=== PATIENT | female | born 1960 | race Two or more races ===

== ENCOUNTER 2018-06-11 09:27 | Inpatient (IN) | payer MEDICAID ==
[~2018-06-11] VITALS: Ht 162.6 cm; Wt 98.9 kg
[2018-06-11] VITALS (12 sets, daily range): BP systolic 110–123; BP diastolic 53–70
[2018-06-11] MEDS ORDERED: SODIUM CHLORIDE 0.9% 1,000 ML IV ONE ×2 (10:15)
[2018-06-11] MEDS ORDERED: CLINDAMYCIN 900MG IV 50 ML IV ONE (10:15)
[2018-06-11] MEDS ORDERED: PIPERACILLIN-TAZOB 3.375GM 100 ML IV ONE (10:15)
[2018-06-11 10:52] LABS: Alanine Aminotransferase 36 U/L (13-56); Albumin 2.7 g/dL (3.4-5.0); Anion Gap 9 (5-15); Aspartate Aminotransferase 35 U/L (15-37); BUN/Creatinine Ratio 12.8; Blood Urea Nitrogen 6 mg/dL (7-18); Calcium 7.6 mg/dL (8.5-10.1); Carbon Dioxide 22 mmol/L (21-32); Chloride 110 mmol/L (98-107); GFR African American 177 mL/min; GFR Non-African American 146 mL/min; Glucose 92 mg/dL (74-106); Potassium 3.7 mmol/L (3.5-5.1); Sodium 141 mmol/L (136-145)
[2018-06-11 10:57] LABS: Alkaline Phosphatase 113 U/L (45-117); Bilirubin, Total 1.5 mg/dL (0.2-1.0); Total Protein 6.4 g/dL (6.4-8.2)
[2018-06-11] MEDS ORDERED: FUROSEMIDE 20 MG/2 ML VIAL IV ONE (11:00)
[2018-06-11 11:42] LABS: Basophils # (auto) 0 uL; Eosinophils # (auto) 0.1 uL; Lymphocytes # (auto) 0.3 uL; Monocytes # (auto) 0.1 uL
[2018-06-11 11:44] LABS: Basophils % (auto) 1.2 % (0.0-2.0); Eosinophils % (auto) 6.4 % (0.0-7.0); Lymphocytes % (auto) 20.5 % (10.0-50.0); Mean Corpuscular Hemoglobin 19.1 pg (28.0-32.0); Mean Corpuscular Hgb Conc. 28.4 g/dL (32.0-36.0); Mean Corpuscular Volume 67.3 fL (80.0-100.0); Monocytes % (auto) 10.2 % (0.0-12.0); Neutrophils # (auto) 0.8 uL; Neutrophils % (auto) 61.7 % (37.0-80.0); Nucleated Red Blood Cells % 1.7 %; Red Blood Cells 2.22 10^6/uL (4.0-5.20)
[2018-06-11 11:48] LABS: Urine WBC None Seen /hpf (0 - 5)
[2018-06-11 11:50] LABS: Red Cell Distribution Width 20.7 % (11.8-14.3)
[2018-06-11 11:52] LABS: Platelet Count (auto) 20 10^3/uL (140-450)
[2018-06-11 11:53] LABS: Hemoglobin 4.3 g/dL (12.2-16.2); White Blood Cell 1.3 10^3/uL (4.4-10.8)
[2018-06-11 12:07] LABS: Mean Corpuscular Hemoglobin 18.8 pg (28.0-32.0)
[2018-06-11 12:11] LABS: Hematocrit 14.5 % (36.0-46.0); Mean Corpuscular Hgb Conc. 28.3 g/dL (32.0-36.0); Mean Corpuscular Volume 66.5 fL (80.0-100.0); Red Blood Cells 2.18 10^6/uL (4.0-5.20)
[2018-06-11 12:14] LABS: INR 1.35 (0.9-1.15); Prothrombin Time 14.2 sec (9.27-12.13)
[2018-06-11 12:20] LABS: Red Cell Distribution Width 20.4 % (11.8-14.3)
[2018-06-11 12:23] LABS: Hemoglobin 4.1 g/dL (12.2-16.2); Platelet Count (auto) 18 10^3/uL (140-450); White Blood Cell 1.3 10^3/uL (4.4-10.8)
[2018-06-11 12:24] LABS: Band Neutrophils % (manual) 0; Basophils % (manual) 0 (0.0-2.0); Blast Cells 0; Metamyelocytes % 0; Myelocytes % 0; Promyelocytes % 0; Reactive Lymphocytes 0
[2018-06-11 12:26] LABS: Urine Bacteria NONE SEEN /hpf (None Seen); Urine Blood Negative /uL (Negative); Urine Specific Gravity 1.005 (1.001-1.035)
[2018-06-11] MEDS ORDERED: DOCUSATE SOD 100 MG CAP PO PRN (13:15)
[2018-06-11] MEDS ORDERED: NITROGLYCERIN 0.4 MG SL TAB SL PRN (13:15)
[2018-06-11] MEDS ORDERED: ACETAMINOPHEN 325 MG TAB PO PRN (13:15)
[2018-06-11] MEDS ORDERED: MORPHINE SULFATE 4 MG/ML SYR/VIAL IV PRN ×2 (13:15)
[2018-06-11] MEDS ORDERED: VANCOMYCIN PER PHARMACY 0 MG IV SCH (13:15)
[2018-06-11] MEDS ORDERED: SPIRONOLACTONE 25 MG TAB PO ONE ×2 (13:15→15:45)
[2018-06-11] MEDS ORDERED: ONDANSETRON HCL 4 MG/2 ML VIAL IV PRN (13:15)
[2018-06-11] MEDS ORDERED: HYDROcodone-ACET 5/325MG TAB PO PRN (13:15)
[2018-06-11 13:34] LABS: Eosinophils % (manual) 3 (0-7); Lymphocytes % (manual) 17 (10.0-50.0); Monocytes % (manual) 5 (0-12)
[2018-06-11] MEDS: SODIUM CHLOR 0.9% PF (SALINE LOCK) 10ML VIAL/SYR IV SCH ×2 (13:56→21:09)
[2018-06-11] MEDS: PIPERACILLIN-TAZOB 3.375GM 100 ML IV SCH ×2 (14:00→20:12)
[2018-06-11] MEDS ORDERED: SPIRONOLACTONE 25 MG TAB PO SCH (18:00)
[2018-06-11] MEDS ORDERED: FUROSEMIDE 20 MG/2 ML VIAL IV SCH (18:00)
[2018-06-11] MEDS: VANCOMYCIN 1GM/250ML 250 ML IV SCH (18:40)
[2018-06-11] MEDS: Ensure Enlive Strawberry 8oz Bottle PO SCH ×2 (18:42→21:09)
[2018-06-11 20:22] LABS: Basophils # (auto) 0 uL; Eosinophils # (auto) 0.1 uL; Lymphocytes # (auto) 0.3 uL; Monocytes # (auto) 0.2 uL; Monocytes % (auto) 8.8 % (0.0-12.0)
[2018-06-11 20:24] LABS: Basophils % (auto) 0.8 % (0.0-2.0); Eosinophils % (auto) 3.4 % (0.0-7.0); Hematocrit 19.6 % (36.0-46.0); Lymphocytes % (auto) 12.9 % (10.0-50.0); Mean Corpuscular Hgb Conc. 29.8 g/dL (32.0-36.0); Mean Corpuscular Volume 70.5 fL (80.0-100.0); Neutrophils # (auto) 1.7 uL; Neutrophils % (auto) 74.1 % (37.0-80.0); Nucleated Red Blood Cells % 0.3 %; Red Blood Cells 2.78 10^6/uL (4.0-5.20); White Blood Cell 2.3 10^3/uL (4.4-10.8)
[2018-06-11 20:35] LABS: Hemoglobin 5.8 g/dL (12.2-16.2); Red Cell Distribution Width 22.5 % (11.8-14.3)
[2018-06-11 20:36] LABS: Platelet Count (auto) 19 10^3/uL (140-450)
[2018-06-11] MEDS: FAMOTIDINE 20 MG TAB PO SCH (21:12)
[2018-06-12] VITALS (11 sets, daily range): BP systolic 117–137; BP diastolic 50–95
[2018-06-12 00:11] LABS: Basophils # (auto) 0 uL; Eosinophils # (auto) 0.1 uL; Monocytes # (auto) 0.3 uL; Nucleated Red Blood Cells % 0.1 %; Red Blood Cells 3.04 10^6/uL (4.0-5.20)
[2018-06-12 00:13] LABS: Eosinophils % (auto) 5.4 % (0.0-7.0); Hematocrit 21.9 % (36.0-46.0); Lymphocytes # (auto) 0.4 uL; Lymphocytes % (auto) 14.2 % (10.0-50.0); Mean Corpuscular Hemoglobin 22.2 pg (28.0-32.0); Mean Corpuscular Hgb Conc. 30.8 g/dL (32.0-36.0); Mean Corpuscular Volume 72.1 fL (80.0-100.0); Monocytes % (auto) 11.4 % (0.0-12.0); Neutrophils # (auto) 1.7 uL; Platelet Count (auto) 25 10^3/uL (140-450); White Blood Cell 2.5 10^3/uL (4.4-10.8)
[2018-06-12 00:16] LABS: Red Cell Distribution Width 23.6 % (11.8-14.3)
[2018-06-12 00:18] LABS: Hemoglobin 6.7 g/dL (12.2-16.2)
[2018-06-12] MEDS: PIPERACILLIN-TAZOB 3.375GM 100 ML IV SCH ×2 (02:15→08:00)
[2018-06-12] MEDS: VANCOMYCIN 1GM/250ML 250 ML IV SCH (03:55)
[2018-06-12] MEDS: Ensure Enlive Strawberry 8oz Bottle PO SCH ×4 (06:00→22:51)
[2018-06-12] MEDS: SODIUM CHLOR 0.9% PF (SALINE LOCK) 10ML VIAL/SYR IV SCH ×3 (06:20→22:50)
[2018-06-12 06:43] LABS: Basophils # (auto) 0 uL; Eosinophils # (auto) 0.2 uL; Lymphocytes # (auto) 0.4 uL; Mean Corpuscular Hgb Conc. 31.9 g/dL (32.0-36.0); Monocytes # (auto) 0.3 uL; Neutrophils # (auto) 1.8 uL; White Blood Cell 2.7 10^3/uL (4.4-10.8)
[2018-06-12 06:46] LABS: Basophils % (auto) 1.1 % (0.0-2.0); Eosinophils % (auto) 7.4 % (0.0-7.0); Hematocrit 25.1 % (36.0-46.0); Mean Corpuscular Hemoglobin 23.4 pg (28.0-32.0); Mean Corpuscular Volume 73.4 fL (80.0-100.0); Monocytes % (auto) 10.4 % (0.0-12.0); Neutrophils % (auto) 66.1 % (37.0-80.0); Nucleated Red Blood Cells % 0.4 %; Red Blood Cells 3.43 10^6/uL (4.0-5.20)
[2018-06-12 07:07] LABS: Albumin 2.9 g/dL (3.4-5.0); BUN/Creatinine Ratio 12.5; Calcium 7.7 mg/dL (8.5-10.1); Potassium 3.5 mmol/L (3.5-5.1); Total Protein 6.8 g/dL (6.4-8.2)
[2018-06-12 07:08] LABS: % Iron Saturation 64.4 % (15-50); Red Cell Distribution Width 23.8 % (11.8-14.3)
[2018-06-12 07:12] LABS: Platelet Count (auto) 14 10^3/uL (140-450)
[2018-06-12] MEDS: MULTIPLE VITAMIN TAB PO SCH (10:00)
[2018-06-12] MEDS: FAMOTIDINE 20 MG TAB PO SCH (11:38)
[2018-06-12] MEDS: FUROSEMIDE 40 MG TAB PO SCH (11:38)
[2018-06-12] MEDS: SPIRONOLACTONE 25 MG TAB PO SCH (14:41)
[2018-06-12] MEDS ORDERED: FUR20T PO (15:24)
[2018-06-12 16:38] LABS: Alcohol, Urine < 3.0 mg/dL (0-5); Amphetamine Screen, Urine NEGATIVE (NEGATIVE); Barbiturate Scree,Urine NEGATIVE (NEGATIVE); Benzodiazephine Screen, Urine NEGATIVE (NEGATIVE); Cannabinoid Screen, Urine NEGATIVE (NEGATIVE); Cocaine Screen, Urine NEGATIVE (NEGATIVE); Opiate Scree,Urine NEGATIVE (NEGATIVE); Phencyclidine Screen, Urine NEGATIVE (NEGATIVE)
[2018-06-12] MEDS: PROPRANOLOL HCL 20 MG TAB PO SCH (22:51)
[2018-06-12] MEDS: PANTOPRAZOLE 40 MG TAB PO SCH (22:51)
[2018-06-12] MEDS: TEMAZEPAM 15 MG CAP PO PRN (22:52)
[2018-06-13] VITALS (9 sets, daily range): BP systolic 98–122; BP diastolic 50–60
[2018-06-13] MEDS: SODIUM CHLOR 0.9% PF (SALINE LOCK) 10ML VIAL/SYR IV SCH ×3 (06:00→22:04)
[2018-06-13] MEDS: Ensure Enlive Strawberry 8oz Bottle PO SCH ×4 (06:00→22:00)
[2018-06-13] MEDS: PANTOPRAZOLE 40 MG TAB PO SCH ×2 (08:40→22:05)
[2018-06-13] MEDS: MULTIPLE VITAMIN TAB PO SCH (08:40)
[2018-06-13] MEDS: cefTRIAXone 1GM/10ml IVPUSH 10 ML IV SCH (08:40)
[2018-06-13] MEDS: FUROSEMIDE 40 MG TAB PO SCH (08:41)
[2018-06-13] MEDS: SPIRONOLACTONE 25 MG TAB PO SCH (08:42)
[2018-06-13] MEDS: PROPRANOLOL HCL 20 MG TAB PO SCH ×2 (10:00→22:04)
[2018-06-13 10:32] LABS: Basophils # (auto) 0 uL; Lymphocytes # (auto) 0.4 uL; Nucleated Red Blood Cells % 0.4 %
[2018-06-13 10:34] LABS: Basophils % (auto) 1.1 % (0.0-2.0); Eosinophils # (auto) 0.2 uL; Eosinophils % (auto) 8.4 % (0.0-7.0); Hematocrit 25.5 % (36.0-46.0); Hemoglobin 7.9 g/dL (12.2-16.2); Mean Corpuscular Hemoglobin 22.8 pg (28.0-32.0); Mean Corpuscular Hgb Conc. 30.7 g/dL (32.0-36.0); Monocytes # (auto) 0.3 uL; Monocytes % (auto) 11.5 % (0.0-12.0); Neutrophils # (auto) 1.8 uL; Red Blood Cells 3.45 10^6/uL (4.0-5.20); White Blood Cell 2.7 10^3/uL (4.4-10.8)
[2018-06-13 10:35] LABS: Red Cell Distribution Width 24.4 % (11.8-14.3)
[2018-06-13 10:36] LABS: Platelet Count (auto) 26 10^3/uL (140-450)
[2018-06-13 10:51] LABS: Hepatitis A Ab IgM Negative; Hepatitis B Core IgM Negative; Hepatitis B Surface Antigen Negative (Negative); Hepatitis C Antibody Negative (Negative)
[2018-06-13] MEDS: TEMAZEPAM 15 MG CAP PO PRN (22:05)
[2018-06-14 04:55] VITALS: BP 113/76
[2018-06-14] MEDS: SODIUM CHLOR 0.9% PF (SALINE LOCK) 10ML VIAL/SYR IV SCH (05:56)
[2018-06-14 07:12] LABS: Basophils # (auto) 0 uL; Eosinophils # (auto) 0.1 uL; Eosinophils % (auto) 3.7 % (0.0-7.0); Hemoglobin 7.6 g/dL (12.2-16.2); Lymphocytes # (auto) 0.5 uL; Mean Corpuscular Hemoglobin 23.4 pg (28.0-32.0)
[2018-06-14 07:14] LABS: Basophils % (auto) 0.8 % (0.0-2.0); Hematocrit 24.3 % (36.0-46.0); Lymphocytes % (auto) 16.8 % (10.0-50.0); Mean Corpuscular Hgb Conc. 31.3 g/dL (32.0-36.0); Mean Corpuscular Volume 74.8 fL (80.0-100.0); Monocytes # (auto) 0.4 uL; Monocytes % (auto) 11.9 % (0.0-12.0); Neutrophils % (auto) 66.8 % (37.0-80.0); Nucleated Red Blood Cells % 0.5 %; Platelet Count (auto) 26 10^3/uL (140-450); Red Blood Cells 3.25 10^6/uL (4.0-5.20)
[2018-06-14 07:25] VITALS: BP 114/52
[2018-06-14 07:29] LABS: Red Cell Distribution Width 24.8 % (11.8-14.3)
[2018-06-14 07:35] LABS: Albumin 2.6 g/dL (3.4-5.0); BUN/Creatinine Ratio 18.8; Bilirubin, Total 1.7 mg/dL (0.2-1.0); Calcium 7.7 mg/dL (8.5-10.1); Potassium 3.7 mmol/L (3.5-5.1); Total Protein 6.3 g/dL (6.4-8.2)
[2018-06-14 07:40] LABS: % Iron Saturation 4.4 % (15-50)
[2018-06-14] MEDS: Ensure Enlive Strawberry 8oz Bottle PO SCH (08:49)
[2018-06-14] MEDS: cefTRIAXone 1GM/10ml IVPUSH 10 ML IV SCH (09:21)
[2018-06-14] MEDS: MULTIPLE VITAMIN TAB PO SCH (09:23)
[2018-06-14] MEDS: PANTOPRAZOLE 40 MG TAB PO SCH (09:23)
[2018-06-14] MEDS: FUROSEMIDE 40 MG TAB PO SCH (09:23)
[2018-06-14] MEDS: SPIRONOLACTONE 25 MG TAB PO SCH (09:24)
[2018-06-14] MEDS: PROPRANOLOL HCL 20 MG TAB PO SCH (10:00)
[2018-06-14] MEDS ORDERED: SPIR25TA88 PO (12:27)
[2018-06-14] MEDS ORDERED: FURO40TA4 PO (12:27)
[2018-06-14] MEDS ORDERED: PRO20T PO (12:27)
[2018-06-14] MEDS ORDERED: PANT40T PO (12:27)
[2018-06-14] MEDS ORDERED: HYDROcodone-ACET 5/325MG TAB PO PRN (12:30)
[2018-06-14] MEDS ORDERED: MORPHINE SULFATE 4 MG/ML SYR/VIAL IV PRN (12:30)
[2018-06-14 13:24] VITALS: BP 106/49
[2018-06-14 14:50] VITALS: BP 106/52
[2018-06-14 16:37] VITALS: BP 115/54
== END 2018-06-14 17:00 | disposition home or self-care (01) ==
LOC: ER 09:27 → TELE 09:28 → DOU IN ICU 06-12 10:00 → TELE-CENTR 06-12 18:10 → CENTRAL 06-13 23:57
PROVIDERS: ADMIT Internal Medicine; ATTEND Internal Medicine
PROC: 30233N1 Transfusion of Nonautologous Red Blood Cells into Peripheral Vein, Percutaneous Approach (ICD-10-PCS; 2018-06-11)
PROC: 30233R1 Transfusion of Nonautologous Platelets into Peripheral Vein, Percutaneous Approach (ICD-10-PCS; principal; 2018-06-12)
DX: K74.69 Other cirrhosis of liver (principal); E43 Unspecified severe protein-calorie malnutrition; D61.818 Other pancytopenia; D68.4 Acquired coagulation factor deficiency; R18.8 Other ascites; E83.51 Hypocalcemia; K76.6 Portal hypertension; R16.1 Splenomegaly, not elsewhere classified; K57.30 Diverticulosis of large intestine without perforation or abscess without bleeding; M46.90 Unspecified inflammatory spondylopathy, site unspecified; I50.9 Heart failure, unspecified; K31.89 Other diseases of stomach and duodenum; K44.9 Diaphragmatic hernia without obstruction or gangrene; Z83.3 Family history of diabetes mellitus; Z68.37 Body mass index [BMI] 37.0-37.9, adult
CPT/HCPCS: 36415; 71045; 74176; 76700; 80053; 80074; 80202; 80307; 81001; 82248; 82390; 83540; 83550; 83880; 84484; 85007; 85025; 85027; 85610; 85652; 86038; 86141; 86850; 86900; 86901; 86920; 87040; 87081; 93005; 93306; 96374; J0696; J2543

== ENCOUNTER 2018-07-12 08:56 | Emergency (ER) | payer MEDICAID, OTHER ==
[~2018-07-12] VITALS: Ht 162.6 cm; Wt 79.8 kg
[~2018-07-12 08:56] MED LIST: FURO40TA4 PO; PANT40T PO; PRO20T PO; SPIR25TA88 PO
[2018-07-12 09:40] LABS: Urine Bacteria FEW /hpf (None Seen); Urine Blood Negative /uL (Negative); Urine Specific Gravity 1.021 (1.001-1.035); Urine WBC 6 /hpf (0 - 5)
[2018-07-12 09:57] LABS: Basophils # (auto) 0 uL; Basophils % (auto) 0.9 % (0.0-2.0); Eosinophils # (auto) 0.1 uL; Lymphocytes # (auto) 0.5 uL; Monocytes # (auto) 0.3 uL; Neutrophils # (auto) 1.8 uL; White Blood Cell 2.8 10^3/uL (4.4-10.8)
[2018-07-12 09:59] LABS: Hematocrit 31.9 % (36.0-46.0); Lymphocytes % (auto) 18.2 % (10.0-50.0); Mean Corpuscular Hemoglobin 24.6 pg (28.0-32.0); Mean Corpuscular Hgb Conc. 31.5 g/dL (32.0-36.0); Mean Corpuscular Volume 78.2 fL (80.0-100.0); Monocytes % (auto) 12.1 % (0.0-12.0); Neutrophils % (auto) 65.8 % (37.0-80.0); Platelet Count (auto) 24 10^3/uL (140-450); Red Blood Cells 4.08 10^6/uL (4.0-5.20)
[2018-07-12 10:13] LABS: Albumin 3.2 g/dL (3.4-5.0); BUN/Creatinine Ratio 16.3; Bilirubin, Total 2.5 mg/dL (0.2-1.0); Calcium 8.3 mg/dL (8.5-10.1); Potassium 3.9 mmol/L (3.5-5.1); Total Protein 7.6 g/dL (6.4-8.2)
[2018-07-12] MEDS ORDERED: NITROFURANTOIN (MONO) 100 mg CAP PO ONE (10:15)
[2018-07-12 10:21] LABS: Red Cell Distribution Width 29.5 % (11.8-14.3)
[2018-07-12 10:41] VITALS: BP 106/45
== END 2018-07-12 12:25 | disposition home or self-care (01) ==
LOC: ER 08:56
DX: N39.0 Urinary tract infection, site not specified (principal); D69.6 Thrombocytopenia, unspecified
CPT/HCPCS: 36415; 76705; 80053; 81001; 82140; 85025; 94761

== ENCOUNTER 2020-06-22 04:27 | Inpatient (IN) | payer MEDICAID, OTHER ==
[~2020-06-22] VITALS: Ht 162.6 cm; Wt 74.2 kg
[2020-06-22] VITALS (11 sets, daily range): BP systolic 93–116; BP diastolic 42–65
[2020-06-22 07:20] LABS: Basophils # (auto) 0 10 ^3/uL (0-0.2); Eosinophils # (auto) 0.1 10 ^3/uL (0-0.8); Lymphocytes # (auto) 0.2 10 ^3/uL (0.4-5.4); Mean Corpuscular Hemoglobin 23.2 pg (28.0-32.0); Mean Corpuscular Hgb Conc. 30.1 g/dL (32.0-36.0); Mean Corpuscular Volume 77.1 fL (80.0-100.0); Monocytes # (auto) 0.1 10 ^3/uL (0-1.3); Neutrophils # (auto) 1.1 10 ^3/uL (1.6-8.6); Red Cell Distribution Width 19.6 % (11.8-14.3)
[2020-06-22 07:21] LABS: Lymphocytes % (auto) 15.1 % (10.0-50.0); Monocytes % (auto) 8.6 % (0.0-12.0); Neutrophils % (auto) 71.3 % (37.0-80.0); Red Blood Cells 2.85 10^6/uL (4.0-5.20)
[2020-06-22 07:31] LABS: INR 1.46 (0.9-1.15); Partial Thromboplastin Time 31.3 sec (23.0-31.2)
[2020-06-22 07:37] LABS: Albumin 2.4 g/dL (3.4-5.0); BUN/Creatinine Ratio 34.1; Calcium 7.2 mg/dL (8.5-10.1); Hemoglobin 6.6 g/dL (12.2-16.2); Magnesium 1.8 mg/dL (1.6-2.6); Potassium 3.6 mmol/L (3.5-5.1); White Blood Cell 1.5 10^3/uL (4.4-10.8)
[2020-06-22 07:44] LABS: Bilirubin, Total 1.1 mg/dL (0.2-1.0); Total Protein 5.7 g/dL (6.4-8.2)
[2020-06-22] MEDS ORDERED: IOHEXOL 300 MG/ML 100ML BOTTLE IJ ONE (07:55)
[2020-06-22 09:29] LABS: Platelet Count (auto) 21 10^3/uL (140-450)
[2020-06-22] MEDS ORDERED: LORazepam 0.5 MG TAB PO PRN (09:30)
[2020-06-22] MEDS ORDERED: DOCUSATE SOD 100 MG CAP PO PRN (09:30)
[2020-06-22] MEDS ORDERED: MORPHINE SULF INJ 2 MG/ML SYRINGE 1ML IV PRN ×2 (09:30)
[2020-06-22] MEDS ORDERED: HYDROcodone-ACET 5/325MG TAB PO PRN (09:30)
[2020-06-22] MEDS ORDERED: PANTOPRAZOLE 40 MG/10 ML VIAL INJ IV ONE (09:30)
[2020-06-22] MEDS ORDERED: ALUM & MAG HYDROX-SIMETH LIQ(MAALOX) 30 ML PO PRN (09:30)
[2020-06-22] MEDS ORDERED: ALBUMIN 25% 50 ML IV ONE (09:30)
[2020-06-22] MEDS ORDERED: NITROGLYCERIN 0.4 MG SL TAB SL PRN (09:30)
[2020-06-22 09:38] LABS: Urine Bacteria MANY /hpf (None Seen); Urine Blood Negative /uL (Negative); Urine Mucus FEW (None Seen); Urine Specific Gravity 1.009 (1.001-1.035); Urine WBC 1 /hpf (0 - 5)
[2020-06-22 09:43] LABS: Cholesterol 73 mg/dL (< 200)
[2020-06-22 09:45] LABS: HDL Cholesterol 34 mg/dL (40-59); LDL Cholesterol 35 mg/dL (< 100); Triglycerides 32 mg/dL (< 150)
[2020-06-22] MEDS ORDERED: diphenhdrAMINE HCL 25 MG CAP PO ONE (09:45)
[2020-06-22 09:49] LABS: Amphetamine Screen, Urine NEGATIVE (NEGATIVE); Barbiturate Scree,Urine NEGATIVE (NEGATIVE); Benzodiazephine Screen, Urine NEGATIVE (NEGATIVE); Cannabinoid Screen, Urine NEGATIVE (NEGATIVE); Cocaine Screen, Urine NEGATIVE (NEGATIVE); Opiate Scree,Urine NEGATIVE (NEGATIVE); Phencyclidine Screen, Urine NEGATIVE (NEGATIVE)
[2020-06-22 09:53] LABS: Alcohol, Urine < 3.0 mg/dL (0-10)
[2020-06-22] MEDS: FUROSEMIDE 20 MG/2 ML VIAL IV SCH ×2 (10:00→17:31)
[2020-06-22] MEDS ORDERED: LACTULOSE 20Gm/30ML SOLN PO PRN (10:15)
[2020-06-22] MEDS ORDERED: FUR20T PO (11:03)
[2020-06-22] MEDS ORDERED: FER325T PO (11:04)
[2020-06-22] MEDS ORDERED: CHOL400T13 PO (11:04)
[2020-06-22] MEDS: cefTRIAXone 1GM/50ML D5W 50 ML IV SCH (11:56)
[2020-06-22] MEDS: SPIRONOLACTONE 25 MG TAB PO SCH (11:57)
[2020-06-22] MEDS: PROPRANOLOL HCL 20 MG TAB PO SCH ×2 (11:57→22:00)
[2020-06-22] MEDS: SODIUM CHLOR 0.9% PF (SALINE LOCK) 10ML VIAL/SYR IV SCH ×2 (14:13→22:13)
--- NOTE | 2020-06-22 15:13 | NUR ---
Pt Arrived on Unit Pt arrived on unit from ED. Pt is able to ambulate to bed without any difficulty. Pt is a/ox4 with no s/s of distress or SOB. Safety measures maintained with call light within reach, bed in lowest position and side rails up. Will continue to monitor for changes.
[2020-06-22] MEDS: ALBUMIN 25% 50 ML IV SCH (17:31)
[2020-06-22] MEDS: ONDANSETRON HCL 4 MG/2 ML VIAL IV PRN (20:38)
--- NOTE | 2020-06-22 21:30 | NUR ---
Assumed care of patient. Received report from Sharon PAGAN. Patient resting in bed, no acute S/S of distress, SOB or pain noted. Will continue to monitor every hour and as needed.
[2020-06-22] MEDS ORDERED: PANTOPRAZOLE 40 MG/10 ML VIAL INJ IV SCH (22:00)
[2020-06-23] VITALS (23 sets, daily range): BP systolic 92–120; BP diastolic 44–84
[2020-06-23] MEDS: ALBUMIN 25% 50 ML IV SCH ×2 (01:51→09:08)
[2020-06-23 02:51] LABS: Basophils # (auto) 0 10 ^3/uL (0-0.2); Eosinophils # (auto) 0.1 10 ^3/uL (0-0.8); Lymphocytes # (auto) 0.6 10 ^3/uL (0.4-5.4); Monocytes # (auto) 0.3 10 ^3/uL (0-1.3); Monocytes % (auto) 9.2 % (0.0-12.0); Neutrophils # (auto) 2.6 10 ^3/uL (1.6-8.6); Nucleated Red Blood Cells % 0.1 %; Platelet Count (auto) 30 10^3/uL (140-450); White Blood Cell 3.7 10^3/uL (4.4-10.8)
[2020-06-23 02:53] LABS: Basophils % (auto) 0.7 % (0.0-2.0); Eosinophils % (auto) 3.2 % (0.0-7.0); Hematocrit 18.3 % (36.0-46.0); Lymphocytes % (auto) 16.8 % (10.0-50.0); Mean Corpuscular Hemoglobin 24.5 pg (28.0-32.0); Mean Corpuscular Hgb Conc. 31.7 g/dL (32.0-36.0); Mean Corpuscular Volume 77.3 fL (80.0-100.0); Neutrophils % (auto) 70.1 % (37.0-80.0); Red Blood Cells 2.37 10^6/uL (4.0-5.20); Red Cell Distribution Width 18.9 % (11.8-14.3)
[2020-06-23 02:56] LABS: Hemoglobin 5.8 g/dL (12.2-16.2)
--- NOTE | 2020-06-23 02:58 | NUR ---
CRITICAL LAB VALUE HGB 5.8 PATIENT ASYMPTOMATIC, RESTING IN BED. WILL NOTIFY RALPH BOOTHE.
--- NOTE | 2020-06-23 03:10 | NUR ---
RECEIVED NEW ORDER FROM RALPH BOOTHE. WILL CARRY OUT AND CONTINUE CARE.
[2020-06-23] MEDS: FUROSEMIDE 20 MG/2 ML VIAL IV SCH (05:36)
[2020-06-23] MEDS: SODIUM CHLOR 0.9% PF (SALINE LOCK) 10ML VIAL/SYR IV SCH ×3 (05:36→22:26)
--- NOTE | 2020-06-23 07:40 | NUR ---
Opening Note Assumed pt care from BECKIE RN. Pt is a/ox4 with no s/s of distress or SOB. Pt is currently laying in bed at this time with no complaints. Blood is currently running at this time, pt is tolerating well. Discussed POC with pt, pt verbalized understanding. Safety measures maintained with call light within reach, bed in lowest position and side rails up. Will continue to monitor for changes.
[2020-06-23] MEDS: cefTRIAXone 1GM/50ML D5W 50 ML IV SCH (08:29)
[2020-06-23] MEDS: SPIRONOLACTONE 25 MG TAB PO SCH (09:08)
[2020-06-23] MEDS: PROPRANOLOL HCL 20 MG TAB PO SCH ×2 (09:08→22:00)
[2020-06-23] MEDS: PANTOPRAZOLE 40 MG TAB PO SCH (09:08)
--- NOTE | 2020-06-23 09:20 | NUR ---
Pt Reports/States Stool is Dark Pt states that her stool has been "darker than normal". Request to pt that she show me her stool before disposing of it. Pt verbalized. No reports of any abdominal pain or discomfort at this time. VS are WNL. Will continue to monitor for changes and notify MD upon rounding.
--- NOTE | 2020-06-23 10:08 | NUR ---
Dr Wadsworth at Bedside MD to see pt. Updated on POC. Informed MD of pt's stool. New orders given, read back and verified. Will implement and continue to monitor.
--- NOTE | 2020-06-23 11:10 | NUR ---
STOOL SENT TO LAB
[2020-06-23 13:54] LABS: Hematocrit 24.7 % (36.0-46.0); Hemoglobin 7.8 g/dL (12.2-16.2)
[2020-06-23] MEDS ORDERED: PHYTONADIONE(VitK) ORAL Susp 10mg/10ml(1mg/ml) PO ONE (14:15)
[2020-06-23] MEDS: ONDANSETRON HCL 4 MG/2 ML VIAL IV PRN (16:33)
--- NOTE | 2020-06-23 17:20 | NUR ---
CODE ASSIST Code assist called. Pt stated that she was not feeling well, dizzy and nauseous. Assessed pt.s BP, 62/24 with a HR of 49. Continued to assess BP, 59/29, 87/49, 78/39 all with a HR less than 40. Pt became poor to arouse and clammy. At this time, code assist was called. Accu check performed, 150. Placed pt on 2L via NC. Bolus of fluids was started. Pressures continued to be assessed, 85/46, 73/49 with a HR of 57 and 58 respectively. Pt became more responsive, sat pt up. At this time, pt began throwing up/spitting up [place] red blood. supervisor [place], Kathryn stated that at this time we would be transferring to [facility]. Paged coke oven mason hospitalist at this time for additional orders.
--- NOTE | 2020-06-23 17:30 | NUR ---
PT TRANSFERRED TO [facility] PT TRANSFERRED VIA ACLS. WILL ALL BELONGINGS.
--- NOTE | 2020-06-23 17:49 | NUR ---
Admit to [facility] EUNICE BARNES Iadmitted to [facility] via gurney on hall monitor, and portable 02. Patient transfered to bed, connected to unit monitoring and oxygen, and weighed by bedscale. Patient oriented to Vasiliy aparicio RN, unit, room, bed, and unit policies regarding patient care and visiting hours. All questions and concerns addressed, patient verbalized understanding.
--- NOTE | 2020-06-23 17:54 | NUR ---
DR. ONEAL PAGED AWAITING CALLBACK
[2020-06-23] MEDS: FERROUS SULFATE 325 MG TAB PO SCH (18:00)
--- NOTE | 2020-06-23 18:02 | NUR ---
REPORT CALLED TO [facility] REPORT CALLED TO PAYAM. ALL QUESTIONS ANSWERED.
--- NOTE | 2020-06-23 18:03 | NUR ---
PAGED APARTMENT MAINTENANCE SUPERVISOR HOSPITALIST SECOND PAGE. AWAITING CALL BACK.
--- NOTE | 2020-06-23 18:19 | NUR ---
Dr Mckeon Paged Back Updated on pt's status. requested that pt be upgraded to [facility]. also provided additional order. Will implement and continue to monitor.
[2020-06-23] MEDS ORDERED: HYDROCORTISONE SOD SUCC 100 MG/2ML INJ VIAL IV ONE (18:30)
--- NOTE | 2020-06-23 18:32 | NUR ---
DR. ONEAL CALLBACK EGD TOMORROW 06/24. ANALYSIS EVALUATOR SHANNON MADE AWARE
[2020-06-23] MEDS ORDERED: OCTREOTIDE ACETATE 100 MCG in SODIUM CHL 0.9% 50 ML IV ONE (18:45)
[2020-06-23 18:57] LABS: Basophils # (auto) 0 10 ^3/uL (0-0.2); Eosinophils # (auto) 0.3 10 ^3/uL (0-0.8); Lymphocytes # (auto) 0.5 10 ^3/uL (0.4-5.4); Mean Corpuscular Hemoglobin 25.6 pg (28.0-32.0); Monocytes # (auto) 0.4 10 ^3/uL (0-1.3)
[2020-06-23 18:59] LABS: Basophils % (auto) 0.9 % (0.0-2.0); Eosinophils % (auto) 5.8 % (0.0-7.0); Hematocrit 20.7 % (36.0-46.0); Lymphocytes % (auto) 11.4 % (10.0-50.0); Mean Corpuscular Hgb Conc. 31.5 g/dL (32.0-36.0); Mean Corpuscular Volume 81.2 fL (80.0-100.0); Monocytes % (auto) 8.5 % (0.0-12.0); Neutrophils # (auto) 3.5 10 ^3/uL (1.6-8.6); Neutrophils % (auto) 73.4 % (37.0-80.0); Nucleated Red Blood Cells % 0.2 %; Platelet Count (auto) 31 10^3/uL (140-450); Red Blood Cells 2.55 10^6/uL (4.0-5.20); Red Cell Distribution Width 18.6 % (11.8-14.3); White Blood Cell 4.8 10^3/uL (4.4-10.8)
[2020-06-23] MEDS: OCTREOTIDE ACETATE 500 MCG in SODIUM CHL 0.9% 99 ML IV SCH (19:04)
[2020-06-23 19:05] LABS: INR 1.59 (0.9-1.15); Partial Thromboplastin Time 34.7 sec (23.0-31.2)
[2020-06-23 19:09] LABS: Hemoglobin 6.5 g/dL (12.2-16.2)
--- NOTE | 2020-06-23 19:09 | NUR ---
DR. JOHNSON PAGED REGARDING HGB LEVEL AWAITING CALLBACK
--- NOTE | 2020-06-23 20:14 | NUR ---
CRITICAL LAB VALUES PATIENT RECENT H/H 6.5/20.7 AMMONIA 55. PAGED HOSPITALIST REGARDING LAB VALUES AWAITING CALL BACK.
--- NOTE | 2020-06-23 20:50 | NUR ---
PLATELETS STARTED INFUSION OF PLATELETS, VERIFIED WITH NURSE HERRING. Addendum: 06/23/20 at 6098 by CHERELLE DONOVAN RN RN INFUSION OF PLATELETS COMPLETED @ 9067 NO ADVERSE REACTIONS NOTED PATIENT TOLERATED WELL.
--- NOTE | 2020-06-23 22:05 | NUR ---
HOSPITALIST INFORMED HOSPITALIST OF CRITICAL LAB VALUES RECEIVED ORDER FOR TO TRANSFUSE 1 UNIT PRBC. MIGDALIA.
[2020-06-23 22:50] LABS: Hematocrit 20.3 % (36.0-46.0)
[2020-06-23 22:53] LABS: Hemoglobin 6.4 g/dL (12.2-16.2)
--- NOTE | 2020-06-23 23:45 | NUR ---
BLOOD TRANSFUSION PATIENT CURRENT H/H 6.5/20.7 STARTED BLOOD TRANSFUSION 1 UNIT PRBC. VERIFIED WITH NURSE NEVAEH.
[2020-06-24] VITALS (35 sets, daily range): BP systolic 101–149; BP diastolic 29–102
[2020-06-24] MEDS: OCTREOTIDE ACETATE 500 MCG in SODIUM CHL 0.9% 99 ML IV SCH ×2 (04:56→15:15)
[2020-06-24] MEDS: SODIUM CHLOR 0.9% PF (SALINE LOCK) 10ML VIAL/SYR IV SCH ×3 (04:56→21:48)
[2020-06-24 05:09] LABS: Basophils # (auto) 0 10 ^3/uL (0-0.2); Eosinophils # (auto) 0 10 ^3/uL (0-0.8); Hematocrit 21.7 % (36.0-46.0); Lymphocytes # (auto) 0.4 10 ^3/uL (0.4-5.4); Monocytes # (auto) 0.2 10 ^3/uL (0-1.3); Monocytes % (auto) 6.7 % (0.0-12.0); Neutrophils # (auto) 2.8 10 ^3/uL (1.6-8.6); White Blood Cell 3.4 10^3/uL (4.4-10.8)
[2020-06-24 05:12] LABS: Basophils % (auto) 0.2 % (0.0-2.0); Eosinophils % (auto) 0.2 % (0.0-7.0); Lymphocytes % (auto) 12.1 % (10.0-50.0); Mean Corpuscular Hemoglobin 26.1 pg (28.0-32.0); Mean Corpuscular Volume 81.4 fL (80.0-100.0); Neutrophils % (auto) 80.8 % (37.0-80.0); Nucleated Red Blood Cells % 0.2 %; Platelet Count (auto) 33 10^3/uL (140-450); Red Blood Cells 2.67 10^6/uL (4.0-5.20); Red Cell Distribution Width 18.5 % (11.8-14.3)
[2020-06-24 05:22] LABS: INR 1.46 (0.9-1.15)
--- NOTE | 2020-06-24 05:28 | NUR ---
CRITICAL LAB VALUE PATIENT CURRENT H/H 06/01.7 AFTER RECEIVING 1 UNIT OF PRBC. PATIENT ADMITTED FOR SYMPTOMATIC ANEMIA WITH + STOOL OCCULT AND HAD 1 DARK BLOOD STOOL THIS EVENING. ELSY HOSPITALIST FOR ORDERS. Addendum: 06/24/20 at 0700 by CHERELLE DONOVAN RN RN RECEIVED ORDER FOR H/H @1000.
[2020-06-24 05:31] LABS: Calcium 7.6 mg/dL (8.5-10.1); Magnesium 2.2 mg/dL (1.6-2.6); Potassium 4.1 mmol/L (3.5-5.1)
[2020-06-24 05:33] LABS: BUN/Creatinine Ratio 28.8
--- NOTE | 2020-06-24 07:45 | NUR ---
OPENING SHIFT NOTE Received report from NOC RN, Lisha. Assumed care of patient. Received patient lying in bed connected to bedside monitor with alarms in place. Patient is Citizen Of [place] speaking, but understands simple Maori. Patient is A&Ox4, denies pain and no s/s noted. Patient is currently NPO for EGD at bedside with Dr Hutton today. Patient with PIVs to left FA #18 and left AC #18. Sandostatin gtt infusing at 10ml/hr into left FA. Patient able to get OOB to BSC with stand by assist. Bed in lowest position, rails x2 up and call light within reach. Updated on plan of care. Will continue to monitor q1hr/PRN.
[2020-06-24] MEDS: FERROUS SULFATE 325 MG TAB PO SCH ×2 (08:00→18:00)
[2020-06-24] MEDS ORDERED: SODIUM CHLORIDE LOCK 10 ML ONE (09:01)
[2020-06-24] MEDS ORDERED: LIDOCAINE VISCOUS 2% 15ML UD ONE (09:01)
[2020-06-24] MEDS ORDERED: diphenhdrAMINE HCL 50 MG/1 ML VL ONE (09:02)
--- NOTE | 2020-06-24 09:10 | NUR ---
FAMILY Patient's daughter called. Password verified. Updated on patient status and plan of care. All questions answered at this time.
--- NOTE | 2020-06-24 09:26 | NUR ---
T/C from Dr Hutton. aware of H/H 7.0/21.7 and INR 1.46. Orders received to transfuse 2 unit PRBCs.
[2020-06-24] MEDS ORDERED: FUROSEMIDE 20 MG TAB PO SCH (10:00)
[2020-06-24] MEDS: PANTOPRAZOLE 40 MG TAB PO SCH (10:00)
[2020-06-24] MEDS: PROPRANOLOL HCL 20 MG TAB PO SCH ×2 (10:00→21:49)
[2020-06-24] MEDS: SPIRONOLACTONE 25 MG TAB PO SCH (10:00)
--- NOTE | 2020-06-24 11:02 | NUR ---
COVID antigen swab walked to lab.
--- NOTE | 2020-06-24 11:30 | NUR ---
PT IS RECEIVING A BLOOD TRANSFUSION.
[2020-06-24] MEDS ORDERED: PHYTONADIONE (VIT K)10 MG/ML 1ML VIAL SUBCUT ONE (13:00)
--- NOTE | 2020-06-24 13:15 | NUR ---
EGD Dr Hutton at bedside doing EGD.
[2020-06-24] MEDS: MIDAZOLAM HCL 5 MG/ML-1ML VIAL ONE ×2 (13:21→13:27)
[2020-06-24] MEDS: fentaNYL CITRATE 100 MCG/2 ML VL ONE ×2 (13:21→13:27)
--- NOTE | 2020-06-24 13:45 | NUR ---
EGD EGD complete. SBAR received from EJ Montenegro.
[2020-06-24 16:30] LABS: Hematocrit 29.9 % (36.0-46.0); Hemoglobin 9.6 g/dL (12.2-16.2)
--- NOTE | 2020-06-24 17:36 | NUR ---
FAMILY T/C from patient's family. Updated on patient status and results from EGD. All questions answered at this time.
--- NOTE | 2020-06-24 19:30 | NUR ---
END OF SHIFT NOTE Report given to BECKIE RNZarina. Endorsed care of patient. Patient post EGD this afternoon and is confused post sedation. Bed alarm in place. Will continue to reorient patient PRN.
--- NOTE | 2020-06-24 19:50 | NUR ---
OPENING NOTE: BRITISH TRANSLATION ASSISTED BY EJ QUAN. OPENS EYES, MOVES ALL EXTREMITIES, HOWEVER ONLY ORIENTED TO SELF. PATIENT BARELY SPEAKING AND NOT FOLLOWING COMMANDS AT THIS TIME, PUPILS 2+ BRISK AND EQUAL. PER RN FROM LAST NIGHT PATIENT WAS PREVIOUSLY ORIENTED X3-4. NSR, HR 60-70s. SBP 120s. LS CTA, DIMINISHED TO BASES, EVEN AND UNLABORED BREATHING ON RA. NO COUGH NOTED. ABD SOFT. HYPOACTIVE BS. LBM 06/23. VOIDING VIA BSC PER RN. 2+ PITTING EDEMA TO BLE. 1+ PITTING EDEMA TO BUE. LEFT FA 20 G PIV RUNNING OCTREOTIDE, CDI AND PATENT WITH BLOOD RETURN. RIGHT AC 20 G PIV, BLOODY, BUT PATENT WITH BLOOD RETURN. REINFORCED POC. MAINTAINED PATIENT SAFETY: BED LOCKED AND IN THE LOWEST POSITION, FREQUENT VISUAL CHECKS, BED ALARM ON. WILL CONT CARE
--- NOTE | 2020-06-24 20:27 | NUR ---
SPOKE WITH PATIENT'S DAUGHTER: AFTER PASSWORD VERIFIED, UPDATED ON PATIENT'S STATUS.
--- NOTE | 2020-06-24 21:45 | NUR ---
SPOKE WITH PATIENT'S DAUGHTER: AFTER PASSWORD VERIFIED, UPDATED ON PATIENT'S STATUS.
[2020-06-24] MEDS: PANTOPRAZOLE 40 MG/10 ML VIAL INJ IV SCH (21:48)
--- NOTE | 2020-06-24 21:49 | NUR ---
SCHEDULED PROPRANOLOL HELD - PATIENT TOO SLEEPY
--- NOTE | 2020-06-24 22:05 | NUR ---
REMAINS SLEEPY: IS AWOKEN EASILY BUT ALSO FALLS BACK ASLEEP EASILY. VSS OTHERWISE.
[2020-06-24 22:51] LABS: Hematocrit 28.6 % (36.0-46.0); Hemoglobin 9.3 g/dL (12.2-16.2)
--- NOTE | 2020-06-24 23:30 | NUR ---
NEURO STATUS - PAGED HOSPITALIST: REMAINS SLEEPY. WAKES UP BUT IS APHASIC, AND INTERMITTENTLY FOLLOWING COMMANDS. PAGED SUPPORT DIRECTOR HOSPITALIST TO NOTIFY OF PATIENT CONDITION
--- NOTE | 2020-06-24 23:40 | NUR ---
SPOKE WITH RALPH BOOTHE: MADE AWARE OF PATIENT'S STATUS. NO NEW ORDERS AT THIS TIME, CONTINUE TO MONITOR PATIENT'S STATUS.
--- NOTE | 2020-06-24 23:47 | NUR ---
BG 134
[2020-06-25] VITALS (12 sets, daily range): BP systolic 116–136; BP diastolic 54–99
[2020-06-25] MEDS: OCTREOTIDE ACETATE 500 MCG in SODIUM CHL 0.9% 99 ML IV SCH ×3 (00:45→22:33)
--- NOTE | 2020-06-25 02:12 | NUR ---
NEURO STATUS: MORE AWAKE THAN PREVIOUSLY, BUT REMAINS APHASIC AT THIS TIME. DOES SHAKE AND NOD HER HEAD. FALLS BACK ASLEEP READILY.
--- NOTE | 2020-06-25 02:59 | NUR ---
ITEMIZED PATIENT'S BELONGINGS
[2020-06-25 04:00] LABS: BUN/Creatinine Ratio 37.5; Calcium 7.5 mg/dL (8.5-10.1); Potassium 3.7 mmol/L (3.5-5.1)
[2020-06-25 04:12] LABS: Basophils # (auto) 0 10 ^3/uL (0-0.2); Basophils % (auto) 0.4 % (0.0-2.0); Eosinophils # (auto) 0.1 10 ^3/uL (0-0.8); Hematocrit 28.9 % (36.0-46.0); Hemoglobin 9.4 g/dL (12.2-16.2); Lymphocytes # (auto) 0.3 10 ^3/uL (0.4-5.4); Lymphocytes % (auto) 6.6 % (10.0-50.0); Mean Corpuscular Hemoglobin 27.2 pg (28.0-32.0); Mean Corpuscular Hgb Conc. 32.3 g/dL (32.0-36.0); Mean Corpuscular Volume 84.2 fL (80.0-100.0); Monocytes # (auto) 0.1 10 ^3/uL (0-1.3); Monocytes % (auto) 3.5 % (0.0-12.0); Neutrophils # (auto) 3.6 10 ^3/uL (1.6-8.6); Neutrophils % (auto) 86.5 % (37.0-80.0); Nucleated Red Blood Cells % 0.2 %; Platelet Count (auto) 27 10^3/uL (140-450); Red Blood Cells 3.44 10^6/uL (4.0-5.20); Red Cell Distribution Width 18.1 % (11.8-14.3); White Blood Cell 4.2 10^3/uL (4.4-10.8)
[2020-06-25 04:24] LABS: INR 1.47 (0.9-1.15)
[2020-06-25] MEDS: SODIUM CHLOR 0.9% PF (SALINE LOCK) 10ML VIAL/SYR IV SCH ×3 (05:59→22:34)
--- NOTE | 2020-06-25 06:23 | NUR ---
NEURO STATUS - AYLAD SHYANN, FOUNDRY MOLDER REMAINS LETHARGIC, NOT EASILY TO AWAKEN. STILL APHASIC, AND NOT FOLLOWING COMMANDS.
--- NOTE | 2020-06-25 07:01 | NUR ---
REMOVED LEFT FOREARM 18 G PIV
--- NOTE | 2020-06-25 07:01 | NUR ---
22 G PIV STARTED TO LEFT HAND
--- NOTE | 2020-06-25 07:12 | NUR ---
SPOKE WITH RALPH BOOTHE: MADE AWARE OF PATIENT'S NEURO STATUS. ORDERS FOR HEAD CT STAT.
--- NOTE | 2020-06-25 07:15 | NUR ---
ASKED LAB TO SEND PEDIATRIC PSYCHOLOGIST TO DRAW AMMONIA
--- NOTE | 2020-06-25 07:17 | NUR ---
PATIENT TO HEAD CT WITH CHARGE AND CCT
--- NOTE | 2020-06-25 07:20 | NUR ---
REPORT AND CARE ENDORSED TO EJ TAYLOR
--- NOTE | 2020-06-25 07:34 | NUR ---
BACK FROM HEAD CT
--- NOTE | 2020-06-25 07:45 | NUR ---
OPENING SHIFT NOTE Received report from NOC RNZarina. Assumed care of patient. Patient returned from CT head. Patient connected to bedside monitor with alarms in place. Patient is non responsive to name, startle or pain stimuli. Patient with two PIVs: left hand #22 with sandostatin infusing at 10ml/hr and right AC #18 which is patent and flushes. Pupils are 4mm and sluggish bilaterally. Patient does move extremities randomly but does not follow simple commands. Bed in lowest position, bed alarm in place, rails x4 up for safety and call light within reach. ABG and ammonia level pending. Will page Dr Wadsworth after 0800 to update on changes and further orders. Will continue to monitor q1hr/PRN.
--- NOTE | 2020-06-25 07:53 | NUR ---
SPOKE WITH PATIENT'S DAUGHTER (EUNICE): AFTER PASSWORD VERIFIED, UPDATED ON PATIENT'S STATUS. EUNICE WITH MULTIPLE QUESTIONS AND CONCERNS. ANSWERED QUESTIONS ABLE. EUNICE UPSET ABOUT VISITING POLICY, GIVEN FEBRUARY POLI'S EXTENSION. EUNICE REQUESTING CALL FROM ATTENDING AND DR. ONEAL. ENDORSED TO DAY SHIFT.
[2020-06-25] MEDS: FERROUS SULFATE 325 MG TAB PO SCH ×2 (08:00→18:00)
--- NOTE | 2020-06-25 08:15 | NUR ---
MD Dr Wadsworth paged regarding change of mental status, CT head results and further orders.
--- NOTE | 2020-06-25 09:09 | NUR ---
MD Dr Wadsworth paged again.
--- NOTE | 2020-06-25 09:24 | NUR ---
FAMILY Patient's daughter, Tere, called. Verified password. Informed that Dr Wadsworth hadn't been by to see patient yet and has been paged several times regarding patient status and for further orders. Daughter's call was then transferred into room so she can try to talk to her mother via phone. Patient with spontaneous eye opening but still not following commands.
[2020-06-25] MEDS: PANTOPRAZOLE 40 MG/10 ML VIAL INJ IV SCH ×2 (10:00→22:33)
[2020-06-25] MEDS: PROPRANOLOL HCL 20 MG TAB PO SCH ×2 (10:00→21:07)
[2020-06-25] MEDS ORDERED: D5W/LACTATED RINGERS 1,000 ML IV SCH (10:15)
[2020-06-25] MEDS: LACTULOSE 10g/15ml SOLN PR SCH ×4 (10:15→18:27)
--- NOTE | 2020-06-25 10:30 | NUR ---
PATIENT UNABLE TO PARTICIPATE IN P.T. TODAY BECAUSE OF CHANGE IN MENTAL STATUS.
--- NOTE | 2020-06-25 11:33 | NUR ---
assessment Patient is a 59 year old female who is confused today. Per patients daughter Eunice prior to admission patient lived home with family and was independent. Per EUNICE this is new confusion. Per Eunice patient has no DME. Per Eunice patients PCP is Dr Pelayo. Eunice informed me patients blood pressure dropped and she fainted so she called 911 and patient was admitted. I informed Eunice I will continue to monitor and follow up as appropriate. Eunice verbalized understanding and agreed to discharge plan home. Addendum: 06/25/20 at 1137 by Megan DANG Amended: Links added.
--- NOTE | 2020-06-25 12:32 | NUR ---
RECTAL TUBE/HANLEY Rectal tube and hanley insert per MD orders. Hanley 16fr placed with sterile technique and ~900 ml returned on insertion. Rectal tube placed for lactulose administration. No evidence of external hemorrhoids prior to insertion. Patient with good rectal tone. Rectal tube inserted and balloon inflated to 45ml of water. No stool returned. Administered Lactulose rectally per instructions. Rectal tube clamped at 1215.
--- NOTE | 2020-06-25 13:30 | NUR ---
MD Dr Liu to see patient. will update family via phone.
[2020-06-25] MEDS: D5W/SOD CHL 0.2% 1,000 ML IV SCH (15:00)
--- NOTE | 2020-06-25 15:47 | NUR ---
Nutrition Assessment Notes Please refer to link for full assessment notes. Est Energy needs: 3279-3884 kcals (17-20 kcal/kgBW) Est Protein needs: 63-79 gms/day (0.8-1.0 gm/kgBW) Will continue to monitor and reassess prn. Addendum: 06/25/20 at [address] Amended: Links added.
--- NOTE | 2020-06-25 16:29 | NUR ---
Patient now opening eyes spontaneously and is tracking staff while in room. Patient still not verbally responding to staff when asked questions. Patient is frequently repositioning self in the bed.
--- NOTE | 2020-06-25 18:00 | NUR ---
LACTULOSE Attempted to give lactulose via rectal tube. Infused ~600ml of 1000ml total fluid before patient began to cry out of discomfort. Attempted to leave rectal tube clamped for 30minutes but patient began to attempt to push out fluid around rectal tube. Once rectal tube was unclamped patient immediately calmed down and relaxed. Patient remains aphasic, not verbally responding to staff, but is now tracking and occasionally follows directions after much redirection.
[2020-06-25 18:20] LABS: Hemoglobin 9.3 g/dL (12.2-16.2)
[2020-06-25 18:22] LABS: Hematocrit 29.2 % (36.0-46.0)
--- NOTE | 2020-06-25 19:07 | NUR ---
END OF SHIFT NOTE Patient remains restless in bed. Patient still aphasic, but follows commands to staff when redirected. Patient still with rectal tube draining dark red-brown stool and hanley draining dark nilesh urine. Sandostatin gtt infusing at 10ml/hr and D5W 1/4NS at 60ml/hr. Report to be given to NOC Debbi PAGAN.
[2020-06-26] VITALS: BP 134/61
[2020-06-26] MEDS: LACTULOSE 10g/15ml SOLN PR SCH ×2 (00:56→06:48)
--- NOTE | 2020-06-26 00:56 | NUR ---
Lactulose enema dwelling at this time. Pt still altered but eyes open, not responding verbally and does not follow instructions. Will continue to monitor. Stable at this time.
--- NOTE | 2020-06-26 01:18 | NUR ---
25 min dwell of lactulose. Pt stable. Will continue to monitor.
[2020-06-26 04:00] VITALS: BP 133/67
[2020-06-26 04:08] LABS: INR 1.55 (0.9-1.15)
[2020-06-26 04:12] LABS: Albumin 2.6 g/dL (3.4-5.0); Calcium 7.2 mg/dL (8.5-10.1); Potassium 3.5 mmol/L (3.5-5.1)
[2020-06-26 04:15] LABS: BUN/Creatinine Ratio 21.7; Bilirubin, Total 2.2 mg/dL (0.2-1.0); Total Protein 4.9 g/dL (6.4-8.2)
[2020-06-26] MEDS: OCTREOTIDE ACETATE 500 MCG in SODIUM CHL 0.9% 99 ML IV SCH ×2 (06:47→16:45)
[2020-06-26] MEDS: SODIUM CHLOR 0.9% PF (SALINE LOCK) 10ML VIAL/SYR IV SCH ×3 (06:48→23:10)
[2020-06-26] MEDS: D5W/SOD CHL 0.2% 1,000 ML IV SCH (06:48)
--- NOTE | 2020-06-26 07:00 | NUR ---
Lactulose enema given. Will unclamp after report.
--- NOTE | 2020-06-26 07:30 | NUR ---
Enema unclamped at rectal tube. Pt tolerated well. No S/S of distress. Pt more alert this morning and answered AM shift nurse when introduced. Ammonia level now 55. Pt had full bath and linen change at 0500. Pt stable at this time. Report given, care endorsed.
[2020-06-26 08:00] VITALS: BP 130/55
[2020-06-26] MEDS: FERROUS SULFATE 325 MG TAB PO SCH ×2 (09:22→18:00)
[2020-06-26] MEDS: PROPRANOLOL HCL 20 MG TAB PO SCH ×2 (10:00→23:11)
[2020-06-26 10:04] LABS: Basophils # (auto) 0 10 ^3/uL (0-0.2); Eosinophils # (auto) 0 10 ^3/uL (0-0.8); Lymphocytes # (auto) 0.5 10 ^3/uL (0.4-5.4); Mean Corpuscular Hgb Conc. 30.5 g/dL (32.0-36.0); Monocytes # (auto) 0.5 10 ^3/uL (0-1.3); Nucleated Red Blood Cells % 0.1 %
[2020-06-26 10:10] LABS: Basophils % (auto) 0.2 % (0.0-2.0); Hemoglobin 9.2 g/dL (12.2-16.2); Lymphocytes % (auto) 11.7 % (10.0-50.0); Mean Corpuscular Hemoglobin 27.8 pg (28.0-32.0); Neutrophils # (auto) 3.1 10 ^3/uL (1.6-8.6); Neutrophils % (auto) 76.1 % (37.0-80.0); Platelet Count (auto) 23 10^3/uL (140-450); Red Cell Distribution Width 19.1 % (11.8-14.3); White Blood Cell 4.1 10^3/uL (4.4-10.8)
[2020-06-26] MEDS: D5W 5% 1,000 ML IV SCH (10:45)
[2020-06-26 11:40] VITALS: BP 121/60
[2020-06-26] MEDS: LACTULOSE 20Gm/30ML SOLN PO SCH ×2 (12:00→18:00)
[2020-06-26 15:35] VITALS: BP 131/54
--- NOTE | 2020-06-26 19:53 | NUR ---
Awake and oriented times three pleasant and some disease education done Afebrile no sign of bleeding Apetite good
[2020-06-26 20:00] VITALS: BP 139/63
[2020-06-26] MEDS: PANTOPRAZOLE 40 MG TAB PO SCH (23:11)
[2020-06-26] MEDS: rifAXIMin 550 MG TAB PO SCH (23:30)
--- NOTE | 2020-06-26 23:45 | NUR ---
Pt stable and alert and oriented. No S/S of distress. Family has called multiple times and has spoken to pt on telephone. Pt has been telling family her needs and family has been calling to tell nurse what pt wants. RN spoke to pt and explained that when she needs something she needs to press red button on remote for the nurse and tell her herself what she needs. Pt verbalized understanding. Education was given in both Uzbek and Greenlandic and pt stated she understood.
[2020-06-27] VITALS: BP 132/57
[2020-06-27] MEDS: LACTULOSE 20Gm/30ML SOLN PO SCH ×4 (02:05→17:47)
[2020-06-27 03:26] LABS: Basophils # (auto) 0 10 ^3/uL (0-0.2); Eosinophils # (auto) 0.2 10 ^3/uL (0-0.8); Hemoglobin 8.8 g/dL (12.2-16.2); Lymphocytes # (auto) 0.8 10 ^3/uL (0.4-5.4); Monocytes # (auto) 0.5 10 ^3/uL (0-1.3); White Blood Cell 4.5 10^3/uL (4.4-10.8)
[2020-06-27 03:28] LABS: Basophils % (auto) 0.5 % (0.0-2.0); Eosinophils % (auto) 4.3 % (0.0-7.0); Hematocrit 26.6 % (36.0-46.0); Mean Corpuscular Hemoglobin 29.1 pg (28.0-32.0); Mean Corpuscular Hgb Conc. 33.1 g/dL (32.0-36.0); Mean Corpuscular Volume 87.9 fL (80.0-100.0); Monocytes % (auto) 10.4 % (0.0-12.0); Neutrophils % (auto) 66.8 % (37.0-80.0); Nucleated Red Blood Cells % 0.2 %; Platelet Count (auto) 22 10^3/uL (140-450); Red Blood Cells 3.03 10^6/uL (4.0-5.20); Red Cell Distribution Width 19.3 % (11.8-14.3)
[2020-06-27 03:43] LABS: Potassium 3.2 mmol/L (3.5-5.1)
[2020-06-27 03:47] LABS: Albumin 2.3 g/dL (3.4-5.0); Calcium 7.3 mg/dL (8.5-10.1)
[2020-06-27 03:49] LABS: Bilirubin, Total 1.5 mg/dL (0.2-1.0); Total Protein 4.8 g/dL (6.4-8.2)
[2020-06-27 04:00] VITALS: BP 127/59
[2020-06-27] MEDS: OCTREOTIDE ACETATE 500 MCG in SODIUM CHL 0.9% 99 ML IV SCH (06:03)
[2020-06-27] MEDS: SODIUM CHLOR 0.9% PF (SALINE LOCK) 10ML VIAL/SYR IV SCH ×3 (06:03→19:02)
[2020-06-27 07:40] VITALS: BP 109/52
[2020-06-27] MEDS: FERROUS SULFATE 325 MG TAB PO SCH ×2 (08:00→18:00)
[2020-06-27] MEDS: D5W 5% 1,000 ML IV SCH (08:11)
--- NOTE | 2020-06-27 08:22 | NUR ---
Pt remains stable. More alert and following commands. Report given to AM shift, care endorsed.
[2020-06-27] MEDS: PROPRANOLOL HCL 20 MG TAB PO SCH (09:53)
[2020-06-27] MEDS: PANTOPRAZOLE 40 MG TAB PO SCH ×2 (09:54→22:02)
[2020-06-27] MEDS: rifAXIMin 550 MG TAB PO SCH ×2 (10:00→22:30)
[2020-06-27] MEDS ORDERED: POTASSIUM EFFERVESENT TAB 25 MEQ PO ONE (10:45)
[2020-06-27 11:40] VITALS: BP 109/70
[2020-06-27] MEDS: Ensure HIGH Protein Chocolate 8oz Bottle PO SCH ×2 (12:00→17:46)
--- NOTE | 2020-06-27 14:39 | NUR ---
Awake and oriented Up on a chair a little unsteady Bradycardic down to 52 Propranolol dose at 1000 omitted Sandostatin drip dcd
--- NOTE | 2020-06-27 14:42 | NUR ---
Nutrition Followup Note Wt 74.2kg Pt was sleeping with no family at bedside at time of rounds. Pt diet advanced to full liquid 06/26 with good intake aeb pt with 100% po intake x3 per RN note. Pt diet advanced again 06/27 to 2g Na with 100%x 2 per RN note Pt also with Ensure HP TID ordered by MD. Est Energy needs: 3710-4478 kcals (17-20 kcal/kgBW) Est Protein needs: 63-79 gms/day (0.8-1.0 gm/kgBW) Will continue to monitor and reassess prn. Labs: Creat 0.50L, Alb 2.0L, Ca 6.8L, GLUC 135H BM: Pt with 3 BMs 06/27 per RN note Skin: BS 16 mod risk, full details in point of care specialist note . PES: Altered nutrition related lab values r/t current medical condition aeb hyperglycemia, hypocalcemia, mod hypoalbuminemia Comments: Will continue to monitor PO status, skin status, pertinent labs and weight trends. Will f/u in 3-5 days. 1) Continue to closely monitor pt PO intake to meet at least 75% of meals 2) Continue current plan of care Expected Outcomes/Goals: Pt Pt to resume oral diet Pt appetite to meet at least 75% PO intake Pt labs to improve
[2020-06-27 15:40] VITALS: BP 113/63
[2020-06-27] MEDS ORDERED: SODIUM CHLORIDE 0.9% 500 ML IV ONE (17:45)
--- NOTE | 2020-06-27 22:11 | NUR ---
Pt stable at this time. No S/S of distress. 2200 Xifaxan not available in our pyxis, reported to Annie PAGAN she will still have that medication due. VS stable at this time. VS HR 50, 124/57, 16, 98%, 98.1. Report given to Annie PAGAN. Pt alert and oriented. Stated she would tell her family by cell phone of move to new room. Will transport pt with Sue PAGAN via bed. Pt placed on tele box and on room air.
--- NOTE | 2020-06-27 22:30 | NUR ---
assumed care of pt at this time, pt arrived from [facility]. Pt is alert and oriented, able to make needs known. No s/s of distress. Bedside commode given r/t pt unsteady gait at this time.
[2020-06-28] MEDS: LACTULOSE 20Gm/30ML SOLN PO SCH ×4 (00:24→18:37)
[2020-06-28] MEDS: D5W 5% 1,000 ML IV SCH (02:45)
[2020-06-28 05:00] VITALS: BP 113/54
[2020-06-28] MEDS: SODIUM CHLOR 0.9% PF (SALINE LOCK) 10ML VIAL/SYR IV SCH ×2 (06:05→14:34)
[2020-06-28 07:13] LABS: Basophils # (auto) 0 10 ^3/uL (0-0.2); Basophils % (auto) 0.8 % (0.0-2.0); Eosinophils # (auto) 0.2 10 ^3/uL (0-0.8); Hemoglobin 9.6 g/dL (12.2-16.2); Lymphocytes # (auto) 0.7 10 ^3/uL (0.4-5.4); Monocytes # (auto) 0.3 10 ^3/uL (0-1.3); Neutrophils # (auto) 2.2 10 ^3/uL (1.6-8.6); Platelet Count (auto) 29 10^3/uL (140-450)
[2020-06-28 07:16] LABS: Eosinophils % (auto) 6.4 % (0.0-7.0); Hematocrit 29.5 % (36.0-46.0); Lymphocytes % (auto) 19.7 % (10.0-50.0); Mean Corpuscular Hemoglobin 28.6 pg (28.0-32.0); Mean Corpuscular Hgb Conc. 32.7 g/dL (32.0-36.0); Mean Corpuscular Volume 87.4 fL (80.0-100.0); Monocytes % (auto) 8.9 % (0.0-12.0); Neutrophils % (auto) 64.2 % (37.0-80.0); Nucleated Red Blood Cells % 0.2 %; Red Blood Cells 3.37 10^6/uL (4.0-5.20); White Blood Cell 3.4 10^3/uL (4.4-10.8)
[2020-06-28 07:19] LABS: Red Cell Distribution Width 20.7 % (11.8-14.3)
[2020-06-28 07:59] LABS: Potassium 3.6 mmol/L (3.5-5.1)
[2020-06-28] MEDS: Ensure HIGH Protein Chocolate 8oz Bottle PO SCH ×3 (08:00→18:37)
[2020-06-28] MEDS: FERROUS SULFATE 325 MG TAB PO SCH ×2 (08:00→18:37)
[2020-06-28 08:16] LABS: Albumin 2.5 g/dL (3.4-5.0); BUN/Creatinine Ratio 16.4; Bilirubin, Total 1.6 mg/dL (0.2-1.0); Calcium 7.4 mg/dL (8.5-10.1)
[2020-06-28 09:00] VITALS: BP 114/52
[2020-06-28] MEDS: PANTOPRAZOLE 40 MG TAB PO SCH (10:22)
[2020-06-28] MEDS: rifAXIMin 550 MG TAB PO SCH (10:22)
[2020-06-28 13:00] VITALS: BP 112/56
[2020-06-28] MEDS ORDERED: PANT40T PO (16:28)
[2020-06-28] MEDS ORDERED: RIFA550T PO (16:28)
[2020-06-28 16:58] VITALS: BP 103/54
--- NOTE | 2020-06-28 18:38 | NUR ---
Discharge Went over discharge paperwork with patient and daughter (over the phone). Physical prescription given to patient, all other prescriptions were sent to patient's pharmacy by doctor. Removed IV intact, no problem. Removed telemetry and sent to ICU per hospital protocol. Removed Garcia catheter as patient does not have one at home. It was inserted in hospital. Patient is not immobile or have retention and doesn't need the Garcia. ID bands all removed and disposed in shredder. Patient taking a shower before leaving. Daughter to supervisor opening and picking patient in private vehicle with all personal belongings.
[2020-07-14 10:49] VITALS: BP 64/57
== END 2020-06-28 19:03 | disposition home or self-care (01) | DRG 280 ==
LOC: EDBD 04:27 → ER 04:27 → TELE 04:28 → TELE-WESTW 15:07 → DOU IN ICU 06-23 17:49 → TELE-WESTW 06-27 22:54
PROVIDERS: ADMIT Hospitalist; ATTEND Internal Medicine
PROC: 30233K1 Transfusion of Nonautologous Frozen Plasma into Peripheral Vein, Percutaneous Approach (ICD-10-PCS; principal; 2020-06-22)
PROC: 30233N1 Transfusion of Nonautologous Red Blood Cells into Peripheral Vein, Percutaneous Approach (ICD-10-PCS; 2020-06-22)
PROC: 30233R1 Transfusion of Nonautologous Platelets into Peripheral Vein, Percutaneous Approach (ICD-10-PCS; 2020-06-23)
PROC: 06L38CZ Occlusion of Esophageal Vein with Extraluminal Device, Via Natural or Artificial Opening Endoscopic (ICD-10-PCS; 2020-06-24)
DX: K70.31 Alcoholic cirrhosis of liver with ascites (principal); E43 Unspecified severe protein-calorie malnutrition; I85.11 Secondary esophageal varices with bleeding; K72.90 Hepatic failure, unspecified without coma; D61.818 Other pancytopenia; I95.9 Hypotension, unspecified; K76.6 Portal hypertension; D62 Acute posthemorrhagic anemia; E83.51 Hypocalcemia; E87.0 Hyperosmolality and hypernatremia; I11.0 Hypertensive heart disease with heart failure; I50.9 Heart failure, unspecified; Z20.828 Contact with and (suspected) exposure to other viral communicable diseases; E87.6 Hypokalemia; E86.0 Dehydration; K31.89 Other diseases of stomach and duodenum; Z79.899 Other long term (current) drug therapy; Z83.3 Family history of diabetes mellitus
CPT/HCPCS: 36415; 36600; 43244; 70450; 71045; 74177; 76705; 80048; 80053; 80061; 80307; 81001; 82140; 82270; 82805; 82962; 83036; 83735; 83880; 84484; 85014; 85018; 85025; 85610; 85730; 86850; 86900; 86901; 86920; 87040; 87086; 87426; 93005; 93306; 99291; C9113; G0378; J0696; J2250; J2405; J3430; J7060

== ENCOUNTER 2022-11-23 12:01 | Inpatient (IN) | payer OTHER ==
[~2022-11-23] VITALS: Ht 160 cm; Wt 84.0 kg
[~2022-11-23 12:01] MED LIST changes: +CHOL400T13 PO; +FER325T PO; +FUR20T PO; -FURO40TA4 PO; +RIFA550T PO; +SPIR25TA PO; -SPIR25TA88 PO
[2022-11-23 13:13] LABS: Basophils # (auto) 0 10 ^3/uL (0-0.2); Eosinophils # (auto) 0.1 10 ^3/uL (0-0.8); Lymphocytes # (auto) 0.2 10 ^3/uL (0.4-5.4); Monocytes # (auto) 0.3 10 ^3/uL (0-1.3); Neutrophils # (auto) 1.7 10 ^3/uL (1.6-8.6); Red Blood Cells 3.07 10^6/uL (4.0-5.20); Red Cell Distribution Width 17.8 % (11.8-14.3)
[2022-11-23 13:15] LABS: Basophils % (auto) 1.3 % (0.0-2.0); Eosinophils % (auto) 5.5 % (0.0-7.0); Hematocrit 27.8 % (36.0-46.0); Lymphocytes % (auto) 9.7 % (10.0-50.0); Mean Corpuscular Hemoglobin 29.1 pg (28.0-32.0); Mean Corpuscular Hgb Conc. 32.2 g/dL (32.0-36.0); Mean Corpuscular Volume 90.4 fL (80.0-100.0); Neutrophils % (auto) 72.5 % (37.0-80.0); Nucleated Red Blood Cells % 0.2 %; White Blood Cell 2.4 10^3/uL (4.4-10.8)
[2022-11-23 13:30] LABS: Albumin 2.4 g/dL (3.4-5.0); BUN/Creatinine Ratio 23.6; Calcium 8.1 mg/dL (8.5-10.1); Potassium 4.1 mmol/L (3.5-5.1)
[2022-11-23 13:34] LABS: INR 1.31 (0.9-1.15); Partial Thromboplastin Time 27.1 sec (24.6-33.4)
[2022-11-23 13:56] LABS: Bilirubin, Total 1.3 mg/dL (0.2-1.0); Total Protein 6.2 g/dL (6.4-8.2)
[2022-11-23] MEDS ORDERED: TEMAZEPAM 15 MG CAP PO PRN (14:30)
[2022-11-23] MEDS ORDERED: HYDROcodone-ACET 5/325MG TAB PO PRN (14:30)
[2022-11-23] MEDS ORDERED: ONDANSETRON HCL 4 MG/2 ML VIAL IV PRN (14:30)
[2022-11-23] MEDS ORDERED: ACETAMINOPHEN 325 MG TAB PO PRN (14:30)
[2022-11-23] MEDS ORDERED: MAALOX PLUS or MAALOX 30 ML PO PRN (14:30)
[2022-11-23] MEDS ORDERED: LORazepam 0.5 MG TAB PO PRN (14:30)
[2022-11-23] MEDS ORDERED: DOCUSATE SOD 100 MG CAP PO PRN (14:30)
[2022-11-23] MEDS ORDERED: MORPHINE SULFATE INJ 2 MG/ml SYRG IV PRN (14:30)
[2022-11-24] MEDS: SODIUM CHLORIDE 0.9% 1,000 ML IV SCH ×2 (01:56→07:10)
[2022-11-24 02:55] LABS: Urine Bacteria NONE SEEN /hpf (None Seen); Urine Blood TRACE /uL (Negative); Urine Specific Gravity 1.025 (1.001-1.035); Urine WBC 1 /hpf (0 - 5)
[2022-11-24 05:16] LABS: Basophils # (auto) 0 10 ^3/uL (0-0.2); Basophils % (auto) 1.5 % (0.0-2.0); Eosinophils # (auto) 0.2 10 ^3/uL (0-0.8); Hematocrit 25.3 % (36.0-46.0); Hemoglobin 8.1 g/dL (12.2-16.2); Lymphocytes # (auto) 0.3 10 ^3/uL (0.4-5.4); Lymphocytes % (auto) 12.8 % (10.0-50.0); Mean Corpuscular Hemoglobin 29.1 pg (28.0-32.0); Mean Corpuscular Hgb Conc. 32.1 g/dL (32.0-36.0); Mean Corpuscular Volume 90.7 fL (80.0-100.0); Monocytes # (auto) 0.3 10 ^3/uL (0-1.3); Monocytes % (auto) 13.8 % (0.0-12.0); Neutrophils # (auto) 1.2 10 ^3/uL (1.6-8.6); Neutrophils % (auto) 62.9 % (37.0-80.0); Nucleated Red Blood Cells % 0.3 %; Red Blood Cells 2.79 10^6/uL (4.0-5.20); Red Cell Distribution Width 17.4 % (11.8-14.3)
[2022-11-24 05:34] LABS: BUN/Creatinine Ratio 29.2; Calcium 7.8 mg/dL (8.5-10.1)
[2022-11-24] MEDS ORDERED: cefTRIAXone 1GM/50ML D5W 50 ML IV SCH (10:00)
[2022-11-24] MEDS ORDERED: PANTOPRAZOLE 40 MG/10 ML VIAL INJ IV SCH (10:00)
[2022-11-24] MEDS ORDERED: FUROSEMIDE 40 MG/4 ML VIAL IV SCH (10:00)
[2022-11-24 14:55] VITALS: BP 114/58
[2022-11-24 21:00] VITALS: BP 145/60
[2022-11-24 22:00] VITALS: BP 145/60
[2022-11-24 22:49] VITALS: BP 122/59
[2022-11-24 23:11] VITALS: BP 127/59
[2022-11-25] VITALS (8 sets, daily range): BP systolic 107–124; BP diastolic 46–68
[2022-11-25 06:16] LABS: Basophils # (auto) 0 10 ^3/uL (0-0.2); Eosinophils # (auto) 0.2 10 ^3/uL (0-0.8); Lymphocytes # (auto) 0.2 10 ^3/uL (0.4-5.4); Mean Corpuscular Volume 90.3 fL (80.0-100.0); Monocytes # (auto) 0.3 10 ^3/uL (0-1.3); Neutrophils # (auto) 1.1 10 ^3/uL (1.6-8.6)
[2022-11-25 06:18] LABS: Basophils % (auto) 1.7 % (0.0-2.0); Eosinophils % (auto) 10.9 % (0.0-7.0); Hematocrit 23.8 % (36.0-46.0); Hemoglobin 7.7 g/dL (12.2-16.2); Mean Corpuscular Hemoglobin 29.1 pg (28.0-32.0); Mean Corpuscular Hgb Conc. 32.3 g/dL (32.0-36.0); Monocytes % (auto) 14.9 % (0.0-12.0); Neutrophils % (auto) 60.5 % (37.0-80.0); Nucleated Red Blood Cells % 0.3 %; Red Blood Cells 2.64 10^6/uL (4.0-5.20); Red Cell Distribution Width 18.1 % (11.8-14.3)
[2022-11-25 06:45] LABS: Calcium 7.4 mg/dL (8.5-10.1); Potassium 3.5 mmol/L (3.5-5.1)
[2022-11-25 06:48] LABS: Bilirubin, Total 1.1 mg/dL (0.2-1.0); Total Protein 4.8 g/dL (6.4-8.2)
[2022-11-25 06:52] LABS: White Blood Cell 1.8 10^3/uL (4.4-10.8)
[2022-11-25] MEDS ORDERED: SPIRONOLACTONE 25 MG TAB PO ONE (13:30)
[2022-11-25] MEDS ORDERED: FUROSEMIDE 20 MG TAB PO ONE (13:30)
[2022-11-25] MEDS ORDERED: CHOLTAB12 PO (19:27)
[2022-11-26 05:00] VITALS: BP 105/49
[2022-11-26 06:27] LABS: Basophils # (auto) 0 10 ^3/uL (0-0.2); Basophils % (auto) 1.5 % (0.0-2.0); Eosinophils # (auto) 0.2 10 ^3/uL (0-0.8); Eosinophils % (auto) 10.2 % (0.0-7.0); Hematocrit 26.9 % (36.0-46.0); Hemoglobin 8.3 g/dL (12.2-16.2); Lymphocytes # (auto) 0.3 10 ^3/uL (0.4-5.4); Lymphocytes % (auto) 13.4 % (10.0-50.0); Mean Corpuscular Hemoglobin 28.2 pg (28.0-32.0); Mean Corpuscular Hgb Conc. 30.8 g/dL (32.0-36.0); Mean Corpuscular Volume 91.6 fL (80.0-100.0); Monocytes # (auto) 0.3 10 ^3/uL (0-1.3); Monocytes % (auto) 15.7 % (0.0-12.0); Neutrophils # (auto) 1.3 10 ^3/uL (1.6-8.6); Neutrophils % (auto) 59.2 % (37.0-80.0); Nucleated Red Blood Cells % 0.2 %; Red Blood Cells 2.94 10^6/uL (4.0-5.20); Red Cell Distribution Width 18.6 % (11.8-14.3); White Blood Cell 2.2 10^3/uL (4.4-10.8)
[2022-11-26 06:41] LABS: Albumin 2.3 g/dL (3.4-5.0); BUN/Creatinine Ratio 28.6; Calcium 7.9 mg/dL (8.5-10.1); Potassium 3.9 mmol/L (3.5-5.1)
[2022-11-26 06:47] LABS: Bilirubin, Total 1.3 mg/dL (0.2-1.0); Total Protein 5.7 g/dL (6.4-8.2)
[2022-11-26 08:00] VITALS: BP 107/43
[2022-11-26] MEDS: SPIRONOLACTONE 25 MG TAB PO SCH (10:07)
[2022-11-26] MEDS: FUROSEMIDE 20 MG TAB PO SCH (10:08)
[2022-11-26 12:00] VITALS: BP 101/50
[2022-11-26 16:00] VITALS: BP 103/50
[2022-11-26 22:00] VITALS: BP 112/53
[2022-11-27] VITALS (13 sets, daily range): BP systolic 106–164; BP diastolic 47–72
[2022-11-27 07:36] LABS: Hemoglobin 8.1 g/dL (12.2-16.2)
[2022-11-27 07:40] LABS: Hematocrit 26.1 % (36.0-46.0); Mean Corpuscular Hemoglobin 27.9 pg (28.0-32.0); Mean Corpuscular Volume 90.2 fL (80.0-100.0); Red Blood Cells 2.89 10^6/uL (4.0-5.20); Red Cell Distribution Width 17.5 % (11.8-14.3)
[2022-11-27 07:45] LABS: Potassium 3.8 mmol/L (3.5-5.1)
[2022-11-27 07:54] LABS: Albumin 2.1 g/dL (3.4-5.0); BUN/Creatinine Ratio 23.1
[2022-11-27 07:57] LABS: Bilirubin, Total 1.4 mg/dL (0.2-1.0); Total Protein 5.4 g/dL (6.4-8.2)
[2022-11-27 09:30] LABS: White Blood Cell 1.8 10^3/uL (4.4-10.8)
[2022-11-27 09:31] LABS: Basophils % (manual) 0 (0.0-2.0); Blast Cells 0; Metamyelocytes % 0; Myelocytes % 0; Promyelocytes % 0; Reactive Lymphocytes 0
[2022-11-27 11:33] LABS: Band Neutrophils % (manual) 4; Eosinophils % (manual) 8 (0-7); Lymphocytes % (manual) 12 (10.0-50.0); Monocytes % (manual) 4 (0-12)
[2022-11-27] MEDS: FUROSEMIDE 20 MG TAB PO SCH (12:20)
[2022-11-27] MEDS: SPIRONOLACTONE 25 MG TAB PO SCH (12:20)
[2022-11-27 12:34] LABS: Basophils # (auto) 0 10 ^3/uL (0-0.2); Basophils % (auto) 1.6 % (0.0-2.0); Eosinophils # (auto) 0.2 10 ^3/uL (0-0.8); Eosinophils % (auto) 8.4 % (0.0-7.0); Hematocrit 28.8 % (36.0-46.0); Hemoglobin 8.8 g/dL (12.2-16.2); Lymphocytes # (auto) 0.3 10 ^3/uL (0.4-5.4); Lymphocytes % (auto) 10.9 % (10.0-50.0); Mean Corpuscular Hgb Conc. 30.7 g/dL (32.0-36.0); Mean Corpuscular Volume 91.3 fL (80.0-100.0); Monocytes # (auto) 0.3 10 ^3/uL (0-1.3); Monocytes % (auto) 12.6 % (0.0-12.0); Neutrophils # (auto) 1.6 10 ^3/uL (1.6-8.6); Neutrophils % (auto) 66.5 % (37.0-80.0); Nucleated Red Blood Cells % 0.1 %; Red Blood Cells 3.15 10^6/uL (4.0-5.20); White Blood Cell 2.4 10^3/uL (4.4-10.8)
[2022-11-27] MEDS ORDERED: FUROSEMIDE 20 MG TAB PO SCH (12:45)
[2022-11-27] MEDS ORDERED: SPIRONOLACTONE 25 MG TAB PO SCH (12:45)
[2022-11-28 05:00] VITALS: BP 111/54
[2022-11-28 05:36] LABS: Hematocrit 25.5 % (36.0-46.0); Hemoglobin 7.9 g/dL (12.2-16.2); Mean Corpuscular Hemoglobin 28.1 pg (28.0-32.0); Mean Corpuscular Hgb Conc. 31.1 g/dL (32.0-36.0); Mean Corpuscular Volume 90.3 fL (80.0-100.0); Red Blood Cells 2.82 10^6/uL (4.0-5.20); Red Cell Distribution Width 17.4 % (11.8-14.3)
[2022-11-28 05:49] LABS: BUN/Creatinine Ratio 26.9; Calcium 7.9 mg/dL (8.5-10.1); White Blood Cell 1.7 10^3/uL (4.4-10.8)
[2022-11-28 05:51] LABS: Basophils % (manual) 0 (0.0-2.0); Blast Cells 0; Metamyelocytes % 0; Myelocytes % 0; Promyelocytes % 0; Reactive Lymphocytes 0
[2022-11-28 05:55] LABS: Bilirubin, Total 1.1 mg/dL (0.2-1.0)
[2022-11-28 07:08] LABS: Band Neutrophils % (manual) 4; Eosinophils % (manual) 7 (0-7); Lymphocytes % (manual) 13 (10.0-50.0); Monocytes % (manual) 14 (0-12)
[2022-11-28 09:00] VITALS: BP 103/50
[2022-11-28] MEDS ORDERED: SPIRONOLACTONE 25 MG TAB PO SCH (10:00)
[2022-11-28] MEDS ORDERED: FUROSEMIDE 20 MG TAB PO SCH (10:00)
[2022-11-28] MEDS ORDERED: FURO40TA4 PO (10:29)
[2022-11-28] MEDS ORDERED: SPIR25TA PO (10:29)
== END 2022-11-28 13:02 | disposition home or self-care (01) ==
LOC: ER 12:01 → TELE 14:31 → TELE-E-ADS 11-24 14:25 → TELE-EAST 11-24 21:00
PROVIDERS: ADMIT Hospitalist; ATTEND Student in an Organized Health Care Education/Training Program
PROC: 30233R1 Transfusion of Nonautologous Platelets into Peripheral Vein, Percutaneous Approach (ICD-10-PCS; principal; 2022-11-24)
PROC: 0W9G3ZZ Drainage of Peritoneal Cavity, Percutaneous Approach (ICD-10-PCS; 2022-11-27)
DX: K74.60 Unspecified cirrhosis of liver (principal); D61.818 Other pancytopenia; K76.6 Portal hypertension; R18.8 Other ascites; D64.9 Anemia, unspecified; I10 Essential (primary) hypertension; Z20.822 Contact with and (suspected) exposure to COVID-19
CPT/HCPCS: 36415; 74176; 76705; 76942; 80048; 80053; 81001; 83986; 85007; 85025; 85027; 85610; 85730; 86850; 86900; 86901; 87205; 87426; 89051; C9113; G0378; J0696

== ENCOUNTER 2024-07-23 19:09 | Inpatient (IN) | payer MEDICAID, OTHER ==
[~2024-07-23] VITALS: Ht 160 cm; Wt 82.2 kg
[~2024-07-23 19:09] MED LIST changes: +CHOLTAB12 PO; -FUR20T PO; +FURO20TA4 PO; +FURO40TA4 PO
[2024-07-23 21:09] LABS: Urine Bacteria None Seen /hpf (None Seen)
[2024-07-23 21:33] LABS: Urine Blood Negative /uL (Negative); Urine Clarity Clear (Clear); Urine Color Light-Yellow (Yellow); Urine Hyaline Cast FEW /lpf (0 - 2); Urine Protein, UAD Negative (Negative); Urine Urobilinogen Normal (Negative); Urine WBC <1 /hpf (0 - 5); Urine pH 6.5 (5.0-9.0)
[2024-07-23 21:41] LABS: Basophils # (auto) 0 10 ^3/uL (0-0.2); Eosinophils # (auto) 0 10 ^3/uL (0-0.8); Eosinophils % (auto) 0.1 % (0.0-7.0); Hematocrit 28.9 % (36.0-46.0); Lymphocytes # (auto) 0.2 10 ^3/uL (0.4-5.4); Lymphocytes % (auto) 2.1 % (10.0-50.0); Mean Corpuscular Hgb Conc. 31.2 g/dL (32.0-36.0); Mean Corpuscular Volume 99.3 fL (80.0-100.0); Monocytes # (auto) 0.6 10 ^3/uL (0-1.3); Monocytes % (auto) 7.5 % (0.0-12.0); Neutrophils # (auto) 7.2 10 ^3/uL (1.6-8.6); Neutrophils % (auto) 90.3 % (37.0-80.0); Platelet Count (auto) 48 10^3/uL (140-450); Red Blood Cells 2.91 10^6/uL (4.0-5.20); Red Cell Distribution Width 16.6 % (11.8-14.3); White Blood Cell 7.9 10^3/uL (4.4-10.8)
[2024-07-23 21:59] LABS: Alanine Aminotransferase 42 U/L (7-40); Alkaline Phosphatase 114 U/L (46-116); Anion Gap 4 (5-15); Aspartate Aminotransferase 28 U/L (13-40); BUN/Creatinine Ratio 31.5 (10.0-20.0); Blood Urea Nitrogen 28 mg/dL (9-23); Calcium 8.9 mg/dL (8.7-10.4); Carbon Dioxide 23 mmol/L (20-30); Chloride 106 mmol/L (98-107); Glucose 190 mg/dL (74-106); Potassium 4.8 mmol/L (3.5-5.1); Sodium 133 mmol/L (136-145)
[2024-07-23 22:00] LABS: Bilirubin, Total 1.2 mg/dL (0.2-1.0); Total Protein 5.8 g/dL (5.7-8.2)
[2024-07-23 22:31] LABS: Platelet Estimate Decreased
[2024-07-23] MEDS ORDERED: ONDANSETRON HCL 4 MG/2 ML VIAL IV PRN (23:30)
[2024-07-24] VITALS (7 sets, daily range): BP systolic 99–127; BP diastolic 58–65; PULSE 54–85; RESP 18–19; TEMP 36.5; O2SAT 93–99
[2024-07-24] MEDS ORDERED: SPIR50TA5 PO (03:42)
[2024-07-24] MEDS ORDERED: LACT10SO3 PO (03:44)
[2024-07-24] MEDS ORDERED: AMOX500T86 PO (03:48)
[2024-07-24] MEDS: PANTOPRAZOLE 40 MG TAB PO SCH (06:00)
[2024-07-24] MEDS: SPIRONOLACTONE 25 MG TAB PO SCH (08:56)
[2024-07-24] MEDS: PROPRANOLOL HCL 20 MG TAB PO SCH (08:56)
[2024-07-24] MEDS: rifAXIMin 550 MG TAB PO SCH (08:57)
[2024-07-24] MEDS: FUROSEMIDE 20 MG TAB PO SCH (08:57)
[2024-07-24] MEDS: traMADol HCL 50 MG TAB PO PRN (10:25)
[2024-07-24 11:20] LABS: Cholesterol 112 mg/dL (< 200)
[2024-07-24 11:23] LABS: Blood Alcohol < 3.0 mg/dL (<10); LDL Cholesterol 69 mg/dL (< 100); Triglycerides 46 mg/dL (< 150)
[2024-07-24 11:25] LABS: HDL Cholesterol 29 mg/dL (40-59)
[2024-07-24 13:08] LABS: INR 1.38 (0.9-1.15); Partial Thromboplastin Time 29.2 SEC (24.5-34.5); Prothrombin Time 14.3 sec (9.3-11.8)
[2024-07-24 13:15] LABS: Basophils # (auto) 0 10 ^3/uL (0-0.2); Basophils % (auto) 0.1 % (0.0-2.0); Eosinophils # (auto) 0 10 ^3/uL (0-0.8); Eosinophils % (auto) 0.4 % (0.0-7.0); Hematocrit 34.4 % (36.0-46.0); Hemoglobin 11.2 g/dL (12.2-16.2); Lymphocytes # (auto) 0.2 10 ^3/uL (0.4-5.4); Mean Corpuscular Hemoglobin 31.6 pg (28.0-32.0); Mean Corpuscular Hgb Conc. 32.5 g/dL (32.0-36.0); Mean Corpuscular Volume 97.1 fL (80.0-100.0); Monocytes # (auto) 0.4 10 ^3/uL (0-1.3); Monocytes % (auto) 8.8 % (0.0-12.0); Neutrophils # (auto) 4.1 10 ^3/uL (1.6-8.6); Neutrophils % (auto) 86.7 % (37.0-80.0); Nucleated Red Blood Cells % 0.1 %; Platelet Count (auto) 36 10^3/uL (140-450); Red Blood Cells 3.54 10^6/uL (4.0-5.20); Red Cell Distribution Width 16.3 % (11.8-14.3); White Blood Cell 4.7 10^3/uL (4.4-10.8)
[2024-07-24 13:23] LABS: Ferritin 27.1 ng/mL (10-291)
[2024-07-24 13:34] LABS: Alanine Aminotransferase 33 U/L (7-40); Alkaline Phosphatase 96 U/L (46-116); Anion Gap 6 (5-15); BUN/Creatinine Ratio 33.8 (10.0-20.0); Blood Urea Nitrogen 26 mg/dL (9-23); Calcium 8.5 mg/dL (8.7-10.4); Carbon Dioxide 21 mmol/L (20-30); Chloride 106 mmol/L (98-107); Glucose 172 mg/dL (74-106); Potassium 4.4 mmol/L (3.5-5.1); Sodium 133 mmol/L (136-145)
[2024-07-24 13:35] LABS: Albumin 2.7 g/dL (3.2-4.8); Aspartate Aminotransferase 25 U/L (13-40)
[2024-07-24 13:36] LABS: Bilirubin, Total 1.1 mg/dL (0.2-1.0); Total Protein 5.7 g/dL (5.7-8.2)
== END 2024-07-24 16:35 | disposition home or self-care (01) ==
LOC: ER 19:09 → OVERFLOW 23:22 → WEST WING 07-24 03:25
PROVIDERS: ADMIT Nurse Practitioner; ATTEND Internal Medicine Geriatric Medicine
DX: K74.60 Unspecified cirrhosis of liver (principal); D61.818 Other pancytopenia; D69.6 Thrombocytopenia, unspecified; E87.1 Hypo-osmolality and hyponatremia; R18.8 Other ascites; K80.20 Calculus of gallbladder without cholecystitis without obstruction; D53.9 Nutritional anemia, unspecified; K76.89 Other specified diseases of liver; Z83.3 Family history of diabetes mellitus; Z79.899 Other long term (current) drug therapy; K42.9 Umbilical hernia without obstruction or gangrene; M19.90 Unspecified osteoarthritis, unspecified site
CPT/HCPCS: 36415; 71045; 73562; 74176; 76700; 76705; 80053; 80061; 80320; 81001; 82105; 82140; 82306; 82607; 82728; 83036; 83880; 85025; 85610; 85730; G0378